=== PATIENT | female | born 1980 | race Two or more races ===

== ENCOUNTER 2017-02-11 10:53 | Outpatient (CLI) | payer OTHER | END 2017-02-11 10:54 | disposition home or self-care (01) | LOC: LAB.R 10:53 | PROVIDERS: ATTEND Midwife | DX: Z34.01 Encounter for supervision of normal first pregnancy, first trimester (principal) | CPT/HCPCS: 84144; 84702 ==

== ENCOUNTER 2017-02-13 12:49 | Outpatient (CLI) | payer OTHER | END 2017-02-13 12:50 | disposition home or self-care (01) | LOC: LAB.F 12:49 | PROVIDERS: ATTEND Midwife | DX: Z34.80 Encounter for supervision of other normal pregnancy, unspecified trimester (principal); O26.21 Pregnancy care for patient with recurrent pregnancy loss, first trimester; Z87.59 Personal history of other complications of pregnancy, childbirth and the puerperium | CPT/HCPCS: 36415; 84144; 84702 ==

== ENCOUNTER 2017-02-17 14:51 | Outpatient (CLI) | payer OTHER | END 2017-02-17 14:52 | disposition home or self-care (01) | LOC: LAB.F 14:51 | PROVIDERS: ATTEND Midwife | DX: Z34.80 Encounter for supervision of other normal pregnancy, unspecified trimester (principal); O26.21 Pregnancy care for patient with recurrent pregnancy loss, first trimester | CPT/HCPCS: 36415; 84144; 84702 ==

== ENCOUNTER 2017-02-26 08:00 | Outpatient (CLI) | payer OTHER | END 2017-02-26 08:01 | disposition home or self-care (01) | LOC: LAB.F 08:00 | PROVIDERS: ATTEND Midwife | DX: Z34.80 Encounter for supervision of other normal pregnancy, unspecified trimester (principal); O26.21 Pregnancy care for patient with recurrent pregnancy loss, first trimester; Z87.59 Personal history of other complications of pregnancy, childbirth and the puerperium | CPT/HCPCS: 36415; 84144 ==

== ENCOUNTER 2017-03-03 08:24 | Outpatient (CLI) | payer OTHER ==
[2017-03-03 19:12] LABS: BILIRUBIN,URINE NEGATIVE (NEGATIVE)
[2017-03-03 19:15] LABS: UA CHARGE (STRIP ONLY) YES; UR CULTURE IF IND NOT INDICATED
[2017-03-03 19:33] LABS: BASOPHILS % (AUTO) 0.5 %; EOSINOPHILS % (AUTO) 0.5 %; HCT - HEMATOCRIT 40.4 % (37.0-47.0); HGB - HEMOGLOBIN 13.4 g/dL (12.0-16.0); LYMPHOCYTES % (AUTO) 30.6 %; MEAN CORPUSCULAR HEMOGLOBIN 30.1 pg (27.0-31.0); MEAN CORPUSCULAR HGB CONC 33.1 g/dL (32.0-36.0); MEAN PLATELET VOLUME 8.7 fL (7.9-10.8); MONOCYTES # (AUTO) 0.3 10^3/uL (0.0-1.0); MONOCYTES % (AUTO) 4.7 %; NEUTROPHILS # (AUTO) 4.2 10^3/uL (1.5-6.6); NEUTROPHILS % (AUTO) 63.7 %; NUCLEATED RED BLOOD CELLS AUTO 0.1 /100WBC; RED BLOOD COUNT 4.44 10^6/uL (4.20-5.40); RED CELL DISTRIBUTION WIDTH 13.3 % (12.0-15.0); UNCORRECTED WHITE BLOOD COUNT 6.5 x10^3/uL; WHITE BLOOD COUNT 6.5 x10^3/uL (4.8-10.8)
[2017-03-03 19:53] LABS: THYROID STIMULATING HORMONE 3.29 uIU/mL (0.34-5.60)
[2017-03-04 01:59] LABS: TEST RESULT REPORT (())
== END 2017-03-03 08:25 | disposition home or self-care (01) ==
LOC: LAB.F 08:24
PROVIDERS: ATTEND Midwife
DX: Z34.80 Encounter for supervision of other normal pregnancy, unspecified trimester (principal); O09.521 Supervision of elderly multigravida, first trimester; O26.21 Pregnancy care for patient with recurrent pregnancy loss, first trimester; Z87.59 Personal history of other complications of pregnancy, childbirth and the puerperium
CPT/HCPCS: 36415; 81001; 81003; 81599; 84144; 84443; 84702; 85025; 86592; 86762; 86850; 86900; 86901; 87086; 87340; 87389

== ENCOUNTER 2017-03-09 08:22 | Outpatient (CLI) | payer OTHER | END 2017-03-09 08:23 | disposition home or self-care (01) | LOC: LAB.F 08:22 | PROVIDERS: ATTEND Midwife | DX: O09.521 Supervision of elderly multigravida, first trimester (principal); O26.21 Pregnancy care for patient with recurrent pregnancy loss, first trimester; O09.11 Supervision of pregnancy with history of ectopic pregnancy, first trimester | CPT/HCPCS: 36415; 84144 ==

== ENCOUNTER 2017-03-24 08:20 | Outpatient (CLI) | payer OTHER | END 2017-03-24 08:21 | disposition home or self-care (01) | LOC: LAB.R 08:20 | PROVIDERS: ATTEND Midwife | DX: Z34.01 Encounter for supervision of normal first pregnancy, first trimester (principal); O26.21 Pregnancy care for patient with recurrent pregnancy loss, first trimester; Z87.59 Personal history of other complications of pregnancy, childbirth and the puerperium; O09.521 Supervision of elderly multigravida, first trimester | CPT/HCPCS: 84144 ==

== ENCOUNTER 2017-05-15 12:39 | Outpatient (CLI) | payer OTHER | END 2017-05-15 12:40 | disposition home or self-care (01) | LOC: LAB.F 12:39 | PROVIDERS: ATTEND Midwife | DX: N91.2 Amenorrhea, unspecified (principal) | CPT/HCPCS: 36415; 84702 ==

== ENCOUNTER 2017-05-19 08:47 | Outpatient (CLI) | payer OTHER | END 2017-05-19 08:48 | disposition home or self-care (01) | LOC: LAB.F 08:47 | PROVIDERS: ATTEND Midwife | DX: O09.522 Supervision of elderly multigravida, second trimester (principal); O26.21 Pregnancy care for patient with recurrent pregnancy loss, first trimester; Z87.59 Personal history of other complications of pregnancy, childbirth and the puerperium | CPT/HCPCS: 36415; 82607; 84144; 84702 ==

== ENCOUNTER 2017-05-27 09:03 | Outpatient (CLI) | payer OTHER | END 2017-05-27 09:04 | disposition home or self-care (01) | LOC: LAB.F 09:03 | PROVIDERS: ATTEND Midwife | DX: O20.0 Threatened abortion (principal) | CPT/HCPCS: 36415; 84702 ==

== ENCOUNTER 2017-06-02 12:28 | Outpatient (CLI) | payer OTHER | END 2017-06-02 12:29 | disposition home or self-care (01) | LOC: LAB.F 12:28 | PROVIDERS: ATTEND Midwife | DX: O20.0 Threatened abortion (principal) | CPT/HCPCS: 36415; 84702 ==

== ENCOUNTER 2018-06-08 14:07 | Outpatient (CLI) | payer OTHER ==
[2018-06-08 17:46] LABS: BASOPHILS % (AUTO) 0.4 %; EOSINOPHILS # (AUTO) 0.1 10^3/uL (0.0-0.7); EOSINOPHILS % (AUTO) 0.7 %; HGB - HEMOGLOBIN 12.1 g/dL (12.0-16.0); LYMPHOCYTES # (AUTO) 2.4 10^3/uL (1.5-3.5); MEAN CORPUSCULAR HEMOGLOBIN 30.2 pg (27.0-31.0); MEAN CORPUSCULAR HGB CONC 33.6 g/dL (32.0-36.0); MEAN CORPUSCULAR VOLUME 89.8 fL (81.0-99.0); MEAN PLATELET VOLUME 9.1 fL (7.9-10.8); MONOCYTES # (AUTO) 0.6 10^3/uL (0.0-1.0); MONOCYTES % (AUTO) 6.3 %; NEUTROPHILS # (AUTO) 5.8 10^3/uL (1.5-6.6); NEUTROPHILS % (AUTO) 65.6 %; PLT - PLATELET COUNT 279 10^3/uL (130-450); RED BLOOD COUNT 4.01 10^6/uL (4.20-5.40); RED CELL DISTRIBUTION WIDTH 12.7 % (12.0-15.0); WHITE BLOOD COUNT 8.8 x10^3/uL (4.8-10.8)
== END 2018-06-08 14:08 | disposition home or self-care (01) ==
LOC: LAB.F 14:07
PROVIDERS: ATTEND Nurse Practitioner Family
DX: Z34.82 Encounter for supervision of other normal pregnancy, second trimester (principal)
CPT/HCPCS: 36415; 85025

== ENCOUNTER 2021-03-21 08:41 | Outpatient (CLI) | payer BC ==
[2021-03-21 14:31] LABS: BASOPHILS % (AUTO) 0.3 %; EOSINOPHILS # (AUTO) 0.1 10^3/uL (0.0-0.7); HCT - HEMATOCRIT 40.5 % (37.0-47.0); HGB - HEMOGLOBIN 12.9 g/dL (12.0-16.0); LYMPHOCYTES # (AUTO) 2.3 10^3/uL (1.5-3.5); LYMPHOCYTES % (AUTO) 38.2 %; MEAN CORPUSCULAR HEMOGLOBIN 29.6 pg (27.0-31.0); MEAN CORPUSCULAR HGB CONC 31.9 g/dL (32.0-36.0); MEAN CORPUSCULAR VOLUME 92.9 fL (81.0-99.0); MEAN PLATELET VOLUME 10.3 fL (7.9-10.8); MONOCYTES # (AUTO) 0.3 10^3/uL (0.0-1.0); MONOCYTES % (AUTO) 4.9 %; NEUTROPHILS # (AUTO) 3.3 10^3/uL (1.5-6.6); NEUTROPHILS % (AUTO) 55.4 %; PLT - PLATELET COUNT 284 10^3/uL (130-450); RED BLOOD COUNT 4.36 10^6/uL (4.20-5.40); WHITE BLOOD COUNT 5.9 x10^3/uL (4.8-10.8)
[2021-03-21 15:38] LABS: ALBUMIN 4.3 g/dL (3.2-5.5); ALBUMIN/GLOBULIN RATIO 1.4 (1.0-2.2); ALKALINE PHOSPHATASE 47 IU/L (42-121); ALT ALANINE AMINOTRANSFERASE 11 IU/L (10-60); AST ASPARTATE AMINOTRANSFERASE 17 IU/L (10-42); BILIRUBIN,TOTAL 1.1 mg/dL (0.2-1.0); BUN - BLOOD UREA NITROGEN 13 mg/dL (6-20); CALCIUM 9.2 mg/dL (8.5-10.3); CARBON DIOXIDE - CO2 24 mmol/L (21-32); CHLORIDE 103 mmol/L (101-111); CHOL/HDL RATIO 4.1 (<4.4); CHOLESTEROL 277 mg/dL; CREATININE 0.7 mg/dL (0.4-1.0); CRP HIGH SENSITIVITY 0.6 mg/L; GFR - MDRD 92 (>89); GLUCOSE 94 mg/dL (70-100); HDL CHOLESTEROL 67 mg/dL; LDL CHOLESTEROL,CALCULATED 192 mg/dL; LDL/HDL RATIO 2.9 (<4.4); POTASSIUM 3.9 mmol/L (3.5-5.0); SODIUM 138 mmol/L (135-145); TOTAL PROTEIN 7.3 g/dL (6.7-8.2); TRIGLYCERIDES 91 mg/dL; VLDL CHOLESTEROL 18 mg/dL
[2021-03-21 16:24] LABS: THYROID STIMULATING HORMONE 2.22 uIU/mL (0.34-5.60)
[2021-03-21 16:26] LABS: FREE T3 3.64 pg/mL (2.5-3.9); FREE T4 (FREE THYROXINE) 0.8 ng/dL (0.58-1.64)
[2021-03-21 20:51] LABS: ESTIMATED AVERAGE GLUCOSE 117 mg/dL (70-100); HEMOGLOBIN A1c% 5.7 % (4.27-6.07)
[2021-03-22 18:01] LABS: HOMOCYSTEINE 6.9 umol/L (<10.4)
== END 2021-03-21 08:42 | disposition home or self-care (01) ==
LOC: LAB.S 08:41
PROVIDERS: ATTEND Family Medicine
DX: E78.5 Hyperlipidemia, unspecified (principal); E03.9 Hypothyroidism, unspecified; R73.09 Other abnormal glucose; D64.9 Anemia, unspecified; R53.83 Other fatigue
CPT/HCPCS: 36415; 80053; 80061; 82626; 82728; 83036; 83090; 83721; 84439; 84443; 84480; 84481; 84482; 85025; 86141